=== PATIENT | male | born 1935 | race Caucasian/White ===

== ENCOUNTER 2017-05-06 17:54 | Inpatient (IN) | payer OTHER ==
[~2017-05-06] VITALS: Ht 165.1 cm; Wt 79.5 kg
--- NOTE | ~2017-05-06 | EKG ---
[address] [employer] [place] [address] ELECTROCARDIOGRAM REPORT Name: FAYE BAHENA Room #: 448-P ADM IN M.R.#: [id number] Admission: 05/08/17 Attend Phys: Juan Lenz DO Discharge: Date of : 39 Report #: [id number] THIS REPORT FOR: //name// [facility] ED Test Date: 2017-05-06 Test Time: 18:26:57 Pat Name: FAYE BAHENA Department: Room: [facility] Gender: M Pmo Project Manager: CHRISTINE Rodriguez : 1935 Requested By: Tono Walters Order Number: [id number] MD: Scott Ruff Measurements Intervals [place] Rate: 207 P: [place]: QRS: 11 QRSD: 154 T: 4 QT: 421 QTc: 782 Interpretive Statements Atrial fibrillation. No specific st/t changes Electronically Signed On 05-08-2017 13:48:16 CDT by Scott Ruff [email or web address] <ELECTRONICALLY SIGNED> By: Scott Ruff MD 05/08/17 1348 1826 25 MD CHAPIS Gardner
[~2017-05-06 17:54] MED LIST: ACID CONTROL150 MG PO; ADALAT CC90 MG PO; ASPIRIN EC81 M1 PO; ASPIRIN325 PO; CLONIDINE0.1 PO; COLCHICINE0.6 MG PO; HYDRALAZINE 10M10 MG PO; HYDROCHLOROTHIA25 M2 PO; HYDROCODONE-AP1 EAC6 PO; LISINOPRIL-HCT1 EAC2 PO; LISINOPRIL20 MG PO; LOPRESSOR50 PO; LOVASTAT40 PO; NIFEDIPINE ER90 M1 PO; NORVASC10 MG PO; NOVOLIN 70100 UNIT/1 SUBQ; NOVOLOG100 UNIT/1; PRILOSEC20 MG PO; TYLENOL325 MG PO; XARELTO10 MG PO; ZANTAC 150MG T150 MG PO; ZOFRAN ODT4 MG DISSOLVE
[2017-05-06 17:55] VITALS: BP 175/83
[2017-05-06 18:20] LABS: ABSOLUTE NEUTROPHILS 8.9 thou/uL (1.4-8.2); BASOPHILS 0.8 % (0.0-2.0); EOSINOPHILS 0.4 % (0.0-3.0); HEMOGLOBIN 15.8 gm/dL (14.0-18.0); LYMPHOCYTES 10.8 % (24.0-44.0); MCHC 35.1 g/dL (28.0-37.0); MCV 88.2 fL (80.0-100.0); MONOCYTES 6.2 % (1.0-8.0); PLATELET COUNT 218 thou/uL (150-400); POLYS 81.8 % (36.0-66.0); RBC 5.11 mil/uL (4.50-6.00); RDW 14.1 % (10.5-14.5); WBC 10.9 thou/uL (4.0-11.0)
[2017-05-06 18:22] LABS: MANUAL DIFF NO
[2017-05-06 18:36] LABS: ANION GAP 9 mmol/L (7-16); BUN 28 mg/dL (7-18); CALCIUM 8.8 mg/dL (8.5-10.1); CHLORIDE 106 mmol/L (98-107); CO2 26 mmol/L (21-32); CREATININE 1.5 mg/dL (0.7-1.3); GLUCOSE 83 mg/dL (74-106); POTASSIUM 3.8 mmol/L (3.5-5.1); SODIUM 141 mmol/L (136-145)
[2017-05-06 18:41] LABS: ALBUMIN 3.4 g/dL (3.4-5.0); ALKALINE PHOSPHATASE 95 U/L (46-116); MAGNESIUM 1.8 mg/dL (1.8-2.4); SGOT 27 U/L (15-37); SGPT 26 U/L (30-65); TOTAL BILIRUBIN 0.4 mg/dL (<0.1-1.0); TOTAL PROTEIN 7.2 g/dL (6.4-8.2); TROPONIN-I < 0.04 ng/mL (<0.04-0.07)
[2017-05-06 20:01] LABS: URINE BILIRUBIN NEGATIVE (Negative); URINE BLOOD TRACE (Negative); URINE COLOR YELLOW; URINE GLUCOSE-RANDOM* 1+ (Negative); URINE KETONES NEGATIVE (Negative); URINE NITRITE NEGATIVE (Negative); URINE PROTEIN (DIPSTICK) 1+ (Negative); URINE SPECIFIC GRAVITY <= 1.005 (1.003-1.035); URINE UROBILINOGEN 0.2 E.U./dl (0.2-1.0)
[2017-05-06] MEDS ORDERED: ASPIR 8181 MG PO (20:09)
[2017-05-06] MEDS ORDERED: HUMULIN N100 UNIT/1 PO (20:10)
[2017-05-06] MEDS ORDERED: HUMULIN N100 UNIT/1 SUBQ (20:10)
[2017-05-06 20:11] VITALS: BP 171/81
[2017-05-06] MEDS ORDERED: HYDROCHLOROTHIA25 M2 PO (20:13)
[2017-05-06] MEDS ORDERED: ZANTAC 150MG T150 MG PO (20:14)
[2017-05-06] MEDS ORDERED: ALLOPURINOL 10100 M1 PO (20:14)
[2017-05-06 20:35] VITALS: BP 139/82
[2017-05-06 20:39] LABS: CASTS None Seen /LPF (None Seen); SQUAMOUS 0-3 Few /LPF (0-3); TRANSITIONAL EPITHEL CELL 4-10 Moderate /LPF (None Seen); URINE RBC 0-2 Rare /HPF (0-2); URINE WBC 6-15 Few /HPF (0-5)
[2017-05-06 20:40] LABS: AMORPHOUS URATES Few /LPF (None Seen)
[2017-05-07 04:42] VITALS: BP 169/75
[2017-05-07 16:34] VITALS: BP 151/66
[2017-05-07 20:00] VITALS: BP 179/74
[2017-05-08 03:40] VITALS: BP 154/76
[2017-05-08 08:36] VITALS: BP 151/69
[2017-05-08 16:14] VITALS: BP 131/64
[2017-05-08 20:03] VITALS: BP 156/81
[2017-05-09 03:43] VITALS: BP 130/66
[2017-05-09 08:42] VITALS: BP 159/64
[2017-05-09 14:45] LABS: URINE BILIRUBIN NEGATIVE (Negative); URINE BLOOD TRACE (Negative); URINE COLOR YELLOW; URINE GLUCOSE-RANDOM* 3+ (Negative); URINE KETONES NEGATIVE (Negative); URINE LEUKOCYTES-REFLEX NEGATIVE (Negative); URINE PROTEIN (DIPSTICK) 2+ (Negative); URINE SPECIFIC GRAVITY 1.025 (1.003-1.035); URINE UROBILINOGEN 0.2 E.U./dl (0.2-1.0)
[2017-05-09 15:01] LABS: CASTS None Seen /LPF (None Seen); CRYSTALS None Seen /LPF (None Seen); SQUAMOUS None Seen /LPF (0-3); URINE RBC None Seen /HPF (0-2); URINE WBC-REFLEX None Seen /HPF (0-5)
[2017-05-10 05:23] VITALS: BP 156/76
[2017-05-10 09:27] VITALS: BP 155/72
[2017-05-10 16:21] VITALS: BP 149/62
[2017-05-10 16:23] VITALS: BP 149/70
[2017-05-10 19:15] VITALS: BP 152/70
[2017-05-11 05:14] VITALS: BP 144/68
[2017-05-11 05:42] LABS: ALBUMIN 2.9 g/dL (3.4-5.0); CALCIUM 8.7 mg/dL (8.5-10.1); CREATININE 1.3 mg/dL (0.7-1.3); PHOSPHORUS 3.1 mg/dL (2.5-4.9); POTASSIUM 3.7 mmol/L (3.5-5.1)
[2017-05-11 08:00] VITALS: BP 186/96
[2017-05-12 05:12] LABS: GLYCOHEMOGLOBIN (HGB A1C) 6.4 % (4.8-5.6)
== END 2017-05-11 16:45 | DRG 637 ==
LOC: ER 17:54 → 4S 19:31 → EROBS 19:31 → 4S 20:20
PROVIDERS: Emergency Medicine; Hospitalist; Specialist
DX: E11.649 Type 2 diabetes mellitus with hypoglycemia without coma (principal); G93.41 Metabolic encephalopathy; N39.0 Urinary tract infection, site not specified; N18.3 Chronic kidney disease, stage 3 (moderate); F03.90 Unspecified dementia, unspecified severity, without behavioral disturbance, psychotic disturbance, mood disturbance, and anxiety; I25.10 Atherosclerotic heart disease of native coronary artery without angina pectoris; E11.40 Type 2 diabetes mellitus with diabetic neuropathy, unspecified; B95.2 Enterococcus as the cause of diseases classified elsewhere; I12.9 Hypertensive chronic kidney disease with stage 1 through stage 4 chronic kidney disease, or unspecified chronic kidney disease; E78.5 Hyperlipidemia, unspecified; Z79.899 Other long term (current) drug therapy; Z87.891 Personal history of nicotine dependence
CPT/HCPCS: 10195

== ENCOUNTER 2017-08-04 01:54 | Emergency (ER) | payer OTHER ==
[~2017-08-04] VITALS: Ht 170.2 cm; Wt 72.6 kg
[~2017-08-04 01:54] MED LIST changes: +ALLOPURINOL 10100 M1 PO; +ASPIR 8181 MG PO; +HUMULIN N100 UNIT/1 PO; +HUMULIN N100 UNIT/1 SUBQ
[2017-08-04] MEDS ORDERED: NOVOLOG MI100 UNIT/M SUBQ ×2 (02:07→02:10)
[2017-08-04] MEDS ORDERED: TYLENOL325 MG PO (02:10)
== END 2017-08-04 03:15 ==
LOC: ER 01:54
DX: M25.559 Pain in unspecified hip (principal); I12.9 Hypertensive chronic kidney disease with stage 1 through stage 4 chronic kidney disease, or unspecified chronic kidney disease; E11.22 Type 2 diabetes mellitus with diabetic chronic kidney disease; N18.3 Chronic kidney disease, stage 3 (moderate); F03.90 Unspecified dementia, unspecified severity, without behavioral disturbance, psychotic disturbance, mood disturbance, and anxiety; I25.10 Atherosclerotic heart disease of native coronary artery without angina pectoris; E11.40 Type 2 diabetes mellitus with diabetic neuropathy, unspecified; Z86.73 Personal history of transient ischemic attack (TIA), and cerebral infarction without residual deficits; Z96.642 Presence of left artificial hip joint; Z87.891 Personal history of nicotine dependence; Z79.4 Long term (current) use of insulin; W06.XXXA Fall from bed, initial encounter; Y93.89 Activity, other specified; Y92.89 Other specified places as the place of occurrence of the external cause; Y99.8 Other external cause status

== ENCOUNTER 2019-01-11 03:32 | Inpatient (IN) | payer OTHER ==
[~2019-01-11] VITALS: Ht 167.6 cm; Wt 72.6 kg
[2019-01-11] VITALS (7 sets, daily range): BP systolic 105–140; BP diastolic 60–80
--- NOTE | ~2019-01-11 | HC ---
[facility] [place] [address] CONSULTATION Name: FAYE BAHENA Room #: 364-P [facility] IN M.R.#: [id number] Admission: 01/11/19 ������������������ Attend Phys: Triston Eubanks MD Discharge: ������������������ Date of : 39 Report #: [id number] THIS REPORT FOR: //name// CC: Dillon Eubanks DATE OF SERVICE: 01/12/2019 REASON FOR CONSULTATION: Electrolyte issues. REASON FOR PRESENTATION: Mental status changes. HISTORY OF PRESENT ILLNESS: This was obtained from the medical chart as the patient has dementia and is not able to provide me with the details of his history. He is an 83-year-old with history of hypertension, CKD, chronic diabetes mellitus. He was brought from his facility because of mental status changes. He runs a baseline creatinine of around 1.8. On presentation, his creatinine was 2.9. He had some electrolyte issues including hypernatremia with a sodium value of 153. I am being consulted to manage his electrolyte issues. ALLERGIES: None. FAMILY HISTORY: Unobtainable given the patient's mental status. SOCIAL HISTORY: Unobtainable given the patient's mental status. PAST MEDICAL HISTORY: 1. Dementia. 2. Diabetes mellitus. 3. Chronic kidney disease. 4. Post left hip repair. MEDICATIONS: 1. Hydralazine. 2. Metoprolol. 3. Amlodipine. 4. Lisinopril. 5. Hydrochlorothiazide. 6. Lovastatin. PHYSICAL EXAMINATION: GENERAL: Disoriented. VITAL SIGNS: Temperature 37.8, he had a temp to 38.4 yesterday. Pulse rate 110, respiratory rate 20. Blood pressure 136/95. HEAD AND NECK: No jugular venous distention, no bruit, no thyromegaly. CHEST: No crackles. [facility] [address] [place] [address] CONSULTATION Name: FAYE BAHENA Room #: 364-P [facility] IN M.R.#: [id number] Admission: 01/11/19 ������������������ Attend Phys: Triston Eubanks MD Discharge: ������������������ Date of : 39 Report #: [id number] CARDIOVASCULAR: No rub detected. ABDOMEN: Soft, nontender. LOWER EXTREMITIES: No edema. NEUROLOGICAL: He is confused and disoriented. LABORATORY DATA: Reviewed. White blood cell count was 19.4 and it is down to 16.5. Sodium 153, potassium 3.2, BUN 60, creatinine 2.3, blood sugar of 359, troponin of 5.1. Urine and blood cultures are pending. IMAGING: Chest x-ray with no acute abnormality. ASSESSMENT, IMPRESSION, PLAN: 1. Hypernatremia. 2. Acute kidney injury. 3. Chronic kidney disease. 4. Hypokalemia. 5. Elevated troponin. 6. Dementia. 7. Discontinue his normal saline, this is contributing to his hypernatremia. 8. Start free water. 9. Renal function seems to be improving and will continue to improve. 10. Continue to watch electrolytes and acid base status. 11. Elevated troponin is being addressed by Cardiology, concern of contrast in this condition if Cardiology is planning to cath him. 12. Continue to avoid nephrotoxins. 13. We will continue to follow with you. ��������������������������������������������� ���������������������������������������� By: ��������������������������������������������� 0903 [id number] Antolin Mckinnon MD /nt
[~2019-01-11 03:32] MED LIST changes: +NOVOLOG MI100 UNIT/M SUBQ
[2019-01-11 03:48] LABS: ABSOLUTE NEUTROPHILS 16.5 thou/uL (1.4-8.2); BASOPHILS 0.1 % (0.0-2.0); EOSINOPHILS 0.1 % (0.0-3.0); HEMATOCRIT 43.2 % (42.0-52.0); HEMOGLOBIN 14.2 gm/dL (14.0-18.0); LYMPHOCYTES 3.9 % (24.0-44.0); MCH 29.7 pg (26.0-34.0); MCHC 32.8 g/dL (28.0-37.0); MCV 90.4 fL (80.0-100.0); MONOCYTES 9.4 % (1.0-8.0); PLATELET COUNT 333 thou/uL (150-400); POLYS 86.5 % (36.0-66.0); RBC 4.78 mil/uL (4.50-6.00); RDW 13.4 % (10.5-14.5); WBC 19.1 thou/uL (4.0-11.0)
[2019-01-11 04:00] LABS: URINE BILIRUBIN NEGATIVE (Negative); URINE BLOOD 1+ (Negative); URINE CLARITY SL CLOUDY; URINE COLOR YELLOW; URINE GLUCOSE-RANDOM* 3+ (Negative); URINE KETONES TRACE (Negative); URINE LEUKOCYTES-REFLEX NEGATIVE (Negative); URINE NITRITE-REFLEX NEGATIVE (Negative); URINE PROTEIN (DIPSTICK) 2+ (Negative); URINE SPECIFIC GRAVITY 1.025 (1.005-1.035); URINE UROBILINOGEN 0.2 E.U./dl (0.2-1.0)
[2019-01-11 04:08] LABS: ALBUMIN 1.9 g/dL (3.4-5.0); CALCIUM 9.6 mg/dL (8.5-10.1); CREATININE 2.9 mg/dL (0.7-1.3); MAGNESIUM 2.1 mg/dL (1.8-2.4); POTASSIUM 3.5 mmol/L (3.5-5.1); TOTAL BILIRUBIN 0.7 mg/dL (<0.1-1.0); TOTAL PROTEIN 7.3 g/dL (6.4-8.2)
[2019-01-11 04:09] LABS: AMP/METHAMP Negative (Negative); BARBITURATES Negative (Negative); BENZODIAZEPINES Negative (Negative); COCAINE Negative (Negative); METHADONE Negative (Negative); OPIATES Negative (Negative); PCP Negative (Negative)
[2019-01-11 04:10] LABS: TROPONIN-I 5.03 ng/mL (<0.06)
[2019-01-11 04:28] LABS: BACTERIA-REFLEX >30 Many /HPF (None Seen); CASTS None Seen /LPF (None Seen); CRYSTALS None Seen /LPF (None Seen); MUCUS 0-3 Light strn/LPF (None Seen); SQUAMOUS 0-3 Few /LPF (0-3); URINE RBC 3-10 Few /HPF (0-2)
[2019-01-11 04:34] LABS: INR 1.2; PROTIME 12.7 Seconds (9.3-11.4)
[2019-01-11 07:10] LABS: HEMATOCRIT 40.1 % (42.0-52.0); HEMOGLOBIN 13.5 gm/dL (14.0-18.0); MCH 30.8 pg (26.0-34.0); MCHC 33.8 g/dL (28.0-37.0); RBC 4.4 mil/uL (4.50-6.00); RDW 13.6 % (10.5-14.5); WBC 19.4 thou/uL (4.0-11.0)
--- NOTE | 2019-01-11 08:13 | EKG ---
[place] [address] [employer] [facility] [place] [address] ELECTROCARDIOGRAM REPORT Name: FAYE BAHENA Room #: 364-P ADM IN M.R.#: [id number] ������������������ Admission: 01/11/19 ������������������ Attend Phys: Ruperto Varner MD Discharge: ������������������ Date of : 39 Report #: [id number] ����������������������������������������������������������������� [id number] THIS REPORT FOR: //name// [facility] ED Test Date: 2019-01-11 Test Time: 03:44:35 Pat Name: FAYE BAHENA Department: Room: 364 Gender: M Dietetic Tech: Jennifer LAKHANI : 1935 Requested By: Tono Walters Order Number: [id number] MD: Blair Schwarz Measurements Intervals [place] Rate: 108 P: 96 NM: 205 QRS: -3 QRSD: 110 T: 116 QT: 320 QTc: 429 Interpretive Statements Sinus tachycardia Inferior infarct, acute Poor R wave progression no previous ECGs available for comparison Electronically Signed On 01-11-2019 8:12:58 MONITOR WORKER by Blair Schwarz [email or web address] ��������������������������������������������� <ELECTRONICALLY SIGNED> ���������������������������������������� By: Blair Schwarz MD, [facility] ��������������������������������������������� 01/11/19 0812 0344 0344 Blair Schwarz MD, [facility] /EPI
[2019-01-11] MEDS ORDERED: OXYCONTIN10 M1 PO (08:57)
[2019-01-11] MEDS ORDERED: LANTUS SUBQ (08:58)
--- NOTE | 2019-01-11 17:00 | NUR ---
Assumed care of Pt on arrival to unit at approx 1000. pt confused, irritable, restless. mostly asking to be left alone. noted yellow secretions from eyes and mouth. skin care provided. afebrile thus far. abx infusing per order. seen by cardiology. sinus tach on telemetry - up to 120-130's in afternoon - cardiology notified - ekg done. no new orders received. attributed to disease process. no heparin gtt per cardiology. scd's in place. condom cath in place. turned q2h. skin intact w/ some bruises with old dried blood. family at bedside for part of day. will cont to monitor.
--- NOTE | 2019-01-11 17:35 | EKG ---
[address] [place] [address] ELECTROCARDIOGRAM REPORT Name: FAYE BAHENA Room #: 364-P ADM IN M.R.#: [id number] ������������������ Admission: 01/11/19 ������������������ Attend Phys: Ruperto Varner MD Discharge: ������������������ Date of : 39 Report #: [id number] ����������������������������������������������������������������� [id number] THIS REPORT FOR: //name// [facility] Test Date: 2019-01-11 Test Time: 16:21:08 Pat Name: FAYE BAHENA Department: Room: 364 P Gender: M Production Drilling Machine Operator: Mariah AGUAYO : 1935 Requested By: Alison Mata Order Number: [id number] MD: Blair Schwarz Measurements Intervals [place] Rate: 131 P: 0 [place]: 132 QRS: -3 QRSD: 106 T: 93 QT: 356 QTc: 526 Interpretive Statements Sinus tachycardia Probable inferior infarct, recent Anterior infarct, old Prolonged QT interval Compared to ECG 01/11/2019 03:44:35 No significant change was found Electronically Signed On 01-11-2019 17:34:57 INTEGRITY DIRECTOR by Blair Schwarz [email or web address] ��������������������������������������������� <ELECTRONICALLY SIGNED> ���������������������������������������� By: Blair Schwarz MD, [facility] ��������������������������������������������� 01/11/19 1734 1621 1621 Blair Schwarz MD, [facility] /EPI
[2019-01-11 23:09] LABS: GLYCOHEMOGLOBIN (HGB A1C) 11.4 % (4.8-5.6)
[2019-01-12 00:11] VITALS: BP 148/76
[2019-01-12 04:52] VITALS: BP 128/57
--- NOTE | 2019-01-12 04:59 | NUR ---
SLEPT MOST OF SHIFT. STARTLES WHEN AWAKENED OR TOUCHED. REMAINS ORIENTED TO SELF AND DATE. DOES NOT REMEMBER YEAR. REPOSITIONED EVERY 2-3 HOURS FOR COMFORT AND SKIN CARE. WORKING ON GOALS AND PLAN OF CARE FOR NOC. NOT PROGRESSING TOWARDS DISCHARGE GOALS AT THIS TIME. MOUTH CARE GIVEN EVERY 2-3 HOURS. ASSIST WITH LIQUIDS. NO COUGHING NOTED WITH LIQUIDS. CONTINUE TO ASSES.
[2019-01-12 05:26] LABS: ABSOLUTE NEUTROPHILS 13.4 thou/uL (1.4-8.2); BASOPHILS 0.2 % (0.0-2.0); HEMATOCRIT 38.4 % (42.0-52.0); HEMOGLOBIN 12.8 gm/dL (14.0-18.0); LYMPHOCYTES 7.2 % (24.0-44.0); MCH 30.1 pg (26.0-34.0); MCHC 33.3 g/dL (28.0-37.0); MCV 90.3 fL (80.0-100.0); MONOCYTES 11.3 % (1.0-8.0); PLATELET COUNT 250 thou/uL (150-400); POLYS 81.3 % (36.0-66.0); RBC 4.26 mil/uL (4.50-6.00); RDW 13.4 % (10.5-14.5); WBC 16.5 thou/uL (4.0-11.0)
[2019-01-12 05:54] LABS: ANION GAP 20 mmol/L (7-16); BUN 60 mg/dL (7-18); CALCIUM 8.6 mg/dL (8.5-10.1); CHLORIDE 115 mmol/L (98-107); CHOLESTEROL 61 mg/dL (<200); CO2 18 mmol/L (21-32); CREATININE 2.3 mg/dL (0.7-1.3); GLUCOSE 373 mg/dL (74-106); HDL CHOLESTEROL 30 mg/dL (>40); LDL CHOLESTEROL 23 mg/dL (<100); MAGNESIUM 1.9 mg/dL (1.8-2.4); POTASSIUM 3.2 mmol/L (3.5-5.1); SODIUM 153 mmol/L (136-145); TRIGLYCERIDE 44 mg/dL (<150); VLDL 9 mg/dL (<40)
[2019-01-12 05:58] LABS: SERUM ASSESSMENT Clear
[2019-01-12 05:59] LABS: TROPONIN-I 5.11 ng/mL (<0.06)
[2019-01-12 08:01] VITALS: BP 136/95
--- NOTE | 2019-01-12 08:54 | 2DMMODE ---
[facility] [address] [place] [address] 2 D/M-MODE ECHOCARDIOGRAM Name: FAYE BAHENA Room #: 364-P ADM IN .R.#: [id number] ������������� Admission: 01/11/19 ������������� Attend Phys: Triston Eubanks MD Discharge: ��� ������������� ��� Date of : 39 Date of Service: 01/12/19 0854 �� Report #: [id number] �������� ��������������������������������������������[id number] THIS REPORT FOR: //name// APPROVED REPORT Study performed: 01/12/2019 08:01:50 EXAM: Comprehensive 2D, Doppler, and color-flow Echocardiogram Patient Location: Bedside Room #: 364 Status: routine BSA: 1.80 HR: 100 bpm BP: 128/57 mmHg Other Information Study Quality: Adequate Indications Diabetes CAD Elevated Troponin Hypertension/HDD 2D Dimensions RVDd: 34.06 mm IVSd: 11.10 (7-11mm) LVOT Diam: 22.69 (18-24mm) LVDd: 49.29 mm PWd: 10.79 (7-11mm) Ascending Ao: 26.05 (22-36mm) LVDs: 39.89 (25-40mm) Aortic Root: 30.91 mm Volumes Left Atrial Volume (Systole) Single Plane 4CH: 68.86 mL Single Plane 2CH: 46.61 mL Aortic Valve AoV Peak Arjun.: 1.04 m/s AO Peak Gr.: 4.31 mmHg LVOT Max P.21 mmHg LVOT Max V: 0.90 m/s MARAH Vmax: 3.49 cm2 Pulmonary Valve PV Peak Arjun.: 1.13 m/s PV Peak Gr.: 5.15 mmHg [facility] [address] [place] [address] 2 D/M-MODE ECHOCARDIOGRAM Name: FAYE BAHENA Room #: 364-P ADM IN .R.#: [id number] ������������� Admission: 01/11/19 ������������� Attend Phys: Triston Eubanks MD Discharge: ��� ������������� ��� Date of : 39 Date of Service: 01/12/19 0854 �� Report #: [id number] �������� ��������������������������������������������[id number] Tricuspid Valve TR Peak Arjun.: 2.88 m/s TR Peak Gr.: 33.34 mmHg PA Pressure: 33.00 mmHg Left Ventricle The left ventricle is normal size. There is normal left ventricular wall thickness. Left ventricular systolic function is mild-moderately decreased. Inferolateral and apical hypokinesis. Base of inferior wall hypokinesis LVEF 45%. This study is not technically sufficient to allow evaluation of the LV diastolic function. Right Ventricle The right ventricle is normal size. The right ventricular systolic function is normal. Atria Left atrium is dilated. The right atrium size is normal. Aortic Valve The aortic valve is normal in structure. No aortic regurgitation is present. There is no aortic valvular stenosis. Mitral Valve The mitral valve is normal in structure. Mild mitral regurgitation. No evidence of mitral valve stenosis. Tricuspid Valve The tricuspid valve is normal in structure. There is trace tricuspid regurgitation. Estimated pulmonary artery pressure of 40 mmHg There is mild pulmonary hypertension. Pulmonic Valve The pulmonary valve is normal in structure. There is no pulmonic valvular regurgitation. Great Vessels The aortic root is normal in size. IVC is not well visualized. Pericardium There is no pericardial effusion. <Conclusion> Left ventricular systolic function is mild-moderately decreased. Inferolateral and apical hypokinesis. Base of inferior wall [facility] [address] [place] [address] 2 D/M-MODE ECHOCARDIOGRAM Name: FAYE BAHENA Yonny Room #: 364-P ADM IN M.R.#: [id number] ������������� Admission: 01/11/19 ������������� Attend Phys: Triston Eubanks MD Discharge: ��� ������������� ��� Date of : 39 Date of Service: 01/12/19 0854 �� Report #: [id number] �������� ��������������������������������������������[id number] hypokinesis LVEF 45%. Left atrium is dilated. The aortic valve is normal in structure. No aortic regurgitation or stenosis. The mitral valve is normal in structure. Mild mitral regurgitation. There is trace tricuspid regurgitation. Estimated pulmonary artery pressure of 40 mmHg There is no pericardial effusion. ��������������������������������������������� <ELECTRONICALLY SIGNED> ���������������������������������������� By: Blair Schwarz MD, [facility] ��������������������������������������������� 01/12/19 0854 0854 0854 Blair Schwarz MD, [facility] /INF
[2019-01-12 11:25] VITALS: BP 118/71
--- NOTE | 2019-01-12 14:25 | NUR ---
DISCHARGE PLANNING. PATIENT RESIDES AT [facility] SKILLED NURSING CARE UNIT. PLAN IS FOR PATIENT TO RETURN TO [facility] ONCE MEDICALLY READY. UPDATED CLINICAL INFORMATION FAXED TO [facility]. CALL PLACED TO [facility] TO NOTIFY. FOLLOWING TO ASSIST WITH DISCHARGE PLACEMENT NEEDS.
--- NOTE | 2019-01-12 15:01 | NUR ---
INITIAL ASSESSMENT: RAJWINDER reviewed chart and spoke with nursing and attending physician. Pt was admitted from [facility] due to pneumonia, AMS, Sepsis. Pt with hx of dementia. RAJWINDER met with pt at bedside. Pt is alert/orientated to self only. Pt was unable to answer questions appropriately. RAJWINDER spoke with pt's , Rosibel, via phone. Introduced role of SW. Pt's states that pt has been at [facility] for over a year. Confirmed plan is for pt is to return to [facility] when medically stable. nurse discharge planner faxed clinical info to [facility] post-acute liaison for review. RAJWINDER confirmed with post-acute liaison that pt is in LTC. RAJWINDER is following to assist as needed with discharge planning.
[2019-01-12 17:00] VITALS: BP 122/74
--- NOTE | 2019-01-12 19:47 | NUR ---
ASSUMED PATIENT CARE AT 0700. A/O X2. CONFUSED. VSS. LOW GRADE TEMP. ASSISTED WITH EACH MEALS. TOLERATED NECTAR LIQID. BS HIGH. Q2H TURN. SLOWLY TOWARDS POC GOALS.
[2019-01-12 20:03] VITALS: BP 135/48
[2019-01-13 03:36] VITALS: BP 130/70
--- NOTE | 2019-01-13 03:59 | NUR ---
ASSUMED PT CARE AROUND 1900. ORIENTED TO SELF ONLY. CONFUSED. NO C/O PAIN. PT SLEPT MOST OF THE NIGHT. RESP EVEN AND UNLABORED. O2 SATS STABLE ON 2L NC. VSS. AFEBRILE. Q2H TURN TO PREVENT SKIN BREAKDOWN. HAD SMALL BOWEL MOVEMENT THIS SHIFT. FALL PRECAUTIONS IN PLACE. PROGRESSING SLOWLY TOWARD POC GOALS. WILL CONTINUE TO MONITOR FURTHER.
[2019-01-13 06:37] LABS: ALBUMIN 1.5 g/dL (3.4-5.0); CALCIUM 8.4 mg/dL (8.5-10.1); PHOSPHORUS 2.1 mg/dL (2.5-4.9); POTASSIUM 3.3 mmol/L (3.5-5.1)
[2019-01-13 07:32] VITALS: BP 123/70
[2019-01-13 11:41] VITALS: BP 116/65
--- NOTE | 2019-01-13 13:59 | NUR ---
SW reviewed chart and spoke with nursing and attending physician. PT/OT ordered today to evaluate pt. Plan is for pt to return to [facility] when medically stable. RAJWINDER is following to assist as needed with discharge planning.
[2019-01-13 15:13] VITALS: BP 138/71
--- NOTE | 2019-01-13 16:15 | EKG ---
[address] [place] [address] ELECTROCARDIOGRAM REPORT Name: FAYE BAHENA Room #: 364-P ADM IN M.R.#: [id number] ������������������ Admission: 01/11/19 ������������������ Attend Phys: Triston Eubanks MD Discharge: ������������������ Date of : 39 Report #: [id number] ����������������������������������������������������������������� [id number] THIS REPORT FOR: //name// [facility] Test Date: 2019-01-13 Test Time: 09:33:37 Pat Name: FAYE BAHENA Department: Room: 364 P Gender: M Radiology Assistant: ANTOINTETE : 1935 Requested By: Alison Mata Order Number: [id number] MD: Blair Schwarz Measurements Intervals [place] Rate: 108 P: 49 [place]: 195 QRS: -23 QRSD: 90 T: -13 QT: 395 QTc: 530 Interpretive Statements Sinus tachycardia with atrial premature complexes Inferior infarct, old Anterior infarct, old Prolonged QT interval Compared to ECG 01/11/2019 16:21:08 No significant changes Electronically Signed On 01-13-2019 16:14:52 SALES WAREHOUSE DRIVER by Blair Schwarz [email or web address] ��������������������������������������������� <ELECTRONICALLY SIGNED> ���������������������������������������� By: Blair Schwarz MD, [facility] ��������������������������������������������� 01/13/19 1614 0933 0933 Blair Schwarz MD, [facility] /EPI
--- NOTE | 2019-01-13 18:24 | NUR ---
ASSUMED PATIENT CARE AT 0700. ALERT CONFUSED. POOR APPETITE. VSS. Q2H TURN. NO DISDRESS NOTED. PROGRESSING TOWARDS POC GOALS.
--- NOTE | 2019-01-14 03:41 | NUR ---
ASSESSMENT: PT REMAIN ALERT AND ORIENT TIMES ONE TO SELF. DID NOT ANSWER QUESTIONS APPROPRIATELY REGARDING PLACE, TIME AND SITUATION. DID NOT ANSWER THE YEAR OF THAT HE WAS BORN. ST, AFIB, AND SA PER MONITOR. DID HAVE A LOW GRADE TEMP, TYLENOL GIVEN WITH GOOD RESULTS. HR WAS 120'S AT THE BEGINNING OF THE SHIFT, POST ATENOLOL AND TYLENOL WAS GIVEN, HR DROPPED TO 80'S. CONDOM CATH STILL OPERATIVE, WITH GOOD UO. ONE BM THIS SHIFT. LOW GRADE TEMP DECREASED TO 98.3. POOR PROGRESS TOWARDS DC GOALS, WILL CONTINUE TO MONITOR,
[2019-01-14 05:03] LABS: ALBUMIN 1.4 g/dL (3.4-5.0); CALCIUM 7.8 mg/dL (8.5-10.1); MAGNESIUM 1.8 mg/dL (1.8-2.4); PHOSPHORUS 3.3 mg/dL (2.5-4.9); POTASSIUM 3.4 mmol/L (3.5-5.1)
[2019-01-14 05:54] LABS: ABSOLUTE NEUTROPHILS 12.8 thou/uL (1.4-8.2); BASOPHILS 0.2 % (0.0-2.0); HEMATOCRIT 37.9 % (42.0-52.0); HEMOGLOBIN 12.4 gm/dL (14.0-18.0); LYMPHOCYTES 8.6 % (24.0-44.0); MCH 29.8 pg (26.0-34.0); MCHC 32.7 g/dL (28.0-37.0); MCV 91.1 fL (80.0-100.0); MONOCYTES 8.3 % (1.0-8.0); PLATELET COUNT 243 thou/uL (150-400); POLYS 81.9 % (36.0-66.0); RBC 4.16 mil/uL (4.50-6.00); RDW 13.8 % (10.5-14.5); WBC 15.6 thou/uL (4.0-11.0)
[2019-01-14 06:20] VITALS: BP 136/68
[2019-01-14 07:11] VITALS: BP 95/46
[2019-01-14 08:06] VITALS: BP 95/46
[2019-01-14] MEDS ORDERED: CEFUROXIME250 MG PO (10:00)
[2019-01-14] MEDS ORDERED: FLOMAX0.4 MG PO (10:00)
[2019-01-14] MEDS ORDERED: IPRAT-ALBUT 0.5-3 ML INH (10:00)
[2019-01-14] MEDS ORDERED: CLARITIN10 M2 PO (10:00)
--- NOTE | 2019-01-14 14:34 | NUR ---
DISCHARGE NOTE: SW reviewed chart and spoke with nursing and attending physician. Pt is medically stable for discharge back to [facility] today. communications planner coordinated and notified family. SW notified by nursing that pt's dtr, Ana, had questions regarding pt's discharge. Nursing contacted attending physician. Director of Case Mgmt spoke with pt's dtr. Pt's dtr agreeable with discharge plan. No additional SW needs identified at this time, but is available to assist should needs arise.
--- NOTE | 2019-01-14 16:54 | NUR ---
ASSUMED PATIENT CARE AT 0700. ALERT TO SELF. GENERLIZED WEAKNESS. ASSISTED WITH MEAL. INSERTED SOL CATH. VSS. BS ON RILEY SIDE. DC TO SNF AT 1350.
== END 2019-01-14 15:02 | DRG 871 ==
LOC: ER 03:32 → 3W 04:28 → EROBS 04:28 → 3W 07:56
PROVIDERS: Emergency Medicine; Hospitalist; Internal Medicine Cardiovascular Disease; Nurse Practitioner; ADMIT Internal Medicine
DX: A41.9 Sepsis, unspecified organism (principal); G92 Toxic encephalopathy; E43 Unspecified severe protein-calorie malnutrition; I21.3 ST elevation (STEMI) myocardial infarction of unspecified site; J18.9 Pneumonia, unspecified organism; N17.9 Acute kidney failure, unspecified; E87.0 Hyperosmolality and hypernatremia; I42.9 Cardiomyopathy, unspecified; F03.90 Unspecified dementia, unspecified severity, without behavioral disturbance, psychotic disturbance, mood disturbance, and anxiety; E11.22 Type 2 diabetes mellitus with diabetic chronic kidney disease; I25.10 Atherosclerotic heart disease of native coronary artery without angina pectoris; E11.40 Type 2 diabetes mellitus with diabetic neuropathy, unspecified; N18.3 Chronic kidney disease, stage 3 (moderate); E11.65 Type 2 diabetes mellitus with hyperglycemia; E86.0 Dehydration; E87.6 Hypokalemia; N30.90 Cystitis, unspecified without hematuria; I12.9 Hypertensive chronic kidney disease with stage 1 through stage 4 chronic kidney disease, or unspecified chronic kidney disease; H35.62 Retinal hemorrhage, left eye; Z66 Do not resuscitate; E78.5 Hyperlipidemia, unspecified; H54.62 Unqualified visual loss, left eye, normal vision right eye; G89.29 Other chronic pain; R00.0 Tachycardia, unspecified; R33.9 Retention of urine, unspecified; Z79.899 Other long term (current) drug therapy; Z86.73 Personal history of transient ischemic attack (TIA), and cerebral infarction without residual deficits; Z87.891 Personal history of nicotine dependence; Z79.82 Long term (current) use of aspirin
CPT/HCPCS: 10879